=== PATIENT | male | born 1985 | race Caucasian/White ===

== ENCOUNTER 2020-10-03 19:29 | Emergency (ER) | payer MEDICAID, SELFPAY ==
--- NOTE | 2020-10-03 | XR_ITS ---
Examination: XR wrist LT min 3V, XR forearm LT 2V Indication: pain s/p injury Comparison: No prior films available for comparison. Technique: 2 views of the left forearm with 4 coned views of the left wrist Findings: There does appear to be soft tissue swelling about the mid forearm. I do not appreciate any fracture or cortical disruption. On the lateral field of performed in the lateral view of the wrist there is a suggestion of subtle posterior subluxation of the ulnar head in relation to the carpal bones. This however may be projectional in nature and should be clinically correlated for focal tenderness in this location. Carpal bones are otherwise in normal anatomic alignment. XR/XR forearm LT 2V Impression: Soft tissue swelling about the mid forearm. On the lateral view of the forearm and the lateral view of the wrist there appears to be posterior subluxation of the distal ulna in relation to the carpal bones. This appearance however may be projectional in nature to a pronated wrist. Would clinically correlate for point tenderness in this location.
--- NOTE | 2020-10-03 | XR_ITS ---
Examination: XR wrist LT min 3V, XR forearm LT 2V Indication: pain s/p injury Comparison: No prior films available for comparison. Technique: 2 views of the left forearm with 4 coned views of the left wrist Findings: There does appear to be soft tissue swelling about the mid forearm. I do not appreciate any fracture or cortical disruption. On the lateral field of performed in the lateral view of the wrist there is a suggestion of subtle posterior subluxation of the ulnar head in relation to the carpal bones. This however may be projectional in nature and should be clinically correlated for focal tenderness in this location. Carpal bones are otherwise in normal anatomic alignment. XR/XR wrist LT min 3V Impression: Soft tissue swelling about the mid forearm. On the lateral view of the forearm and the lateral view of the wrist there appears to be posterior subluxation of the distal ulna in relation to the carpal bones. This appearance however may be projectional in nature to a pronated wrist. Would clinically correlate for point tenderness in this location.
[2020-10-03 19:34] VITALS: BP 105/67; PULSE 94; RESP 16; TEMP 36.8; O2SAT 97; BMI 21.2
--- NOTE | 2020-10-03 20:09 | ED.EXTPRO ---
HPI - Extremity Problem General Chief complaint: Extremity Injury, Upper Stated complaint: Wrist Pain Time Seen by Provider: 10/03/20 19:54 Source: patient Mode of arrival: ambulatory Limitations: no limitations History of Present Illness HPI Narrative: Patient presents to ED for left wrist pain for the past 4 days. Patient states at work he hit his left wrist on a machine 4 days ago and since then has been swollen and painful. Patient denies any redness, fever, chills, chest pain, or shortness of breath. Related Data Previous Rx's Medication Instructions Recorded cyclobenzaprine 10 mg PO TID PRN #15 tab 10/03/20 naproxen 500 mg PO BID PRN #20 tab 10/03/20 Allergies Allergy/AdvReac Type Severity Reaction Status Date / Time No Known Allergies Allergy Verified 10/03/20 19:34 [No Known Allergies*] Review of Systems Review of Systems: Yes all other systems are reviewed and are negative Constitutional: Constitutional: Reports as per HPI and Reports no additional constitutional complaints Eyes: Eyes: Reports as per HPI and Reports no additional eye complaints ENT: Reports system reviewed and no additional complaints, except as documented and Reports as per HPI Cardiovascular: Cardiovascular: Reports as per HPI and Reports no additional cardiovascular complaints Respiratory: Respiratory: Reports as per HPI and Reports no additional respiratory complaints Gastrointestinal: Gastrointestinal: Reports as per HPI and Reports no additional gastrointestinal complaints Genitourinary: Genitourinary: Reports no additional male genitourinary complaints and Reports as per HPI Musculoskeletal: Musculoskeletal: Reports no additional musculoskeletal complaints and Reports as per HPI Comments: Left wrist pain Neurologic: Reports system reviewed and no additional complaints, except as documented and Reports as per HPI Psychiatric: Psychiatric: Reports no additional psychiatric complaints and Reports as per HPI PMFSH Past Medical History Medical History (Updated 10/04/20 @ 00:00 by Background Daemon) No known health problems Social History Social History Smoking Status: Current every day smoker Any prior treatment program specific to substance use: No Advance Directives: No Advance Directives Information Provided: No Physical Exam Vital Signs: Vital Signs: Last Vital Signs Temp 98.2 F 10/03/20 19:34 Pulse 94 10/03/20 19:34 Resp 16 10/03/20 19:34 BP 105/67 10/03/20 19:34 Pulse Ox 97 10/03/20 19:34 Body Mass Index 21.2 Const: General: cooperative, healthy appearing, comfortable, no acute distress, well developed, alert, awake and Physically active Orientation/consciousness: patient oriented x3 HENMT: Head: Yes normal to inspection and Yes No palpable skull fracture present Eyes: General: appearance normal, both eyes and all related structures Neck: Neck: Yes normal visual inspection, Yes full ROM, Yes no lymphadenopathy, Yes no meningeal signs, Yes trachea midline, Yes supple, No anterior neck swelling and No tender Chest: Chest palpation & inspection: normal inspection of the chest and normal palpation of entire chest wall Resp: Effort & Inspection: normal respiratory effort and able to speak in complete sentences Auscultation: clear to auscultation bilaterally Cardio: Jugular venous distension: no JVD Heart sounds: S1 normal heart sound present and S2 normal heart sound present GI: Inspection: Yes normal to inspection Palpation (GI): Soft to palpation, not firm, nontender and no guarding : General: No CVA tenderness and Yes no CVA tenderness Back/Spine/Pelvis: Back: no CVA tenderness, No CVA tenderness and No back tenderness Skin: General skin exam: no rashes or lesions noted and elasticity normal Neuro: General: patient oriented x3, gait normal, no meningeal signs and CN's II-XI intact bilaterally Cranial nerves: Yes CN's II-XII intact bilaterally Extrem: Other: Left wrist/forearm positive for slight swelling on radial aspect. Positive for pinpoint tenderness on distal radial aspect/dorsal aspect of left upper extremity. Negative for any ulnar bone tenderness on palpation. Negative for deformity. Radial pulse/brachial pulse is intact. Negative for any erythema or warmt warmth. Capillary refill on all fingers are intact. Psych: Appearance: grossly normal, well kempt and not disheveled Course Course Course Narrative: Patient will be sent for left upper extremity imaging. Reevaluation(s) Reevaluation #1: X-ray negative for any fractures. X-ray reading shows possible subtle posterior subluxation of distal ulna bone, but radiologist states this may be due to projection with positioning of patient's hand. Radiologist states clinically correlate to see if there is ulnar pinpoint tenderness. Patient was re-evaluated and he does not have any distal or proximal ulna pinpoint tenderness on palpation. This makes distal proximal ulna subluxation unlikely. Patient points to only radial bone for pain. Patient given Motrin. Patient will be placed in a wrist splint and follow up with [facility] and possible orthopedic referral. Case discuussed with Dr. Costa and she agrees with plan . Time: 20:57 MDM - Extremity (Nontraumatic) MDM Narrative Medical decision making narrative: Wrist contusion/Sprain Discharge Plan Discharge Clinical Impression: Contusion, Sprain and strain of wrist Patient Disposition: Home, Self-Care Instructions: Contusion in Adults (ED), Wrist Sprain (ED) Additional Instructions: Return to the ED for worsening pain, swelling, redness, blue discoloration of fingers, chest pain, shortness of breath, or any other concerning symptoms. Prescriptions: New naproxen 500 mg tablet 500 mg PO BID PRN (Reason: pain) Qty: 20 RF: 0 cyclobenzaprine 10 mg tablet 10 mg PO TID PRN (Reason: muscle spasm) Qty: 15 RF: 0 Referrals: [facility] [Provider Group] - 2 days (Wrist trauma at work. Diagnosis is contusion vs sprain. [facility]) Finn Saenz MD [Physician] - 2 days (Wrist sprain. X-ray shows possible posterior subluxation of the distal ulna which is doubtful even by Radiologist. Physical exam does not indicate posterior subluxation of the distal ulna. Negative for any pinpoint tenderness of distal ulna bone. ) Stand Alone Forms: Work/School Release Interventions: ED Discharge Assessment Last Done: 10/03/20 21:54 Discharge Date/Time: 10/03/20 21:57 Print Language: Citizen Of [place]
[2020-10-03] MEDS: Ibuprofen 800 MG TABLET PO (21:05)
--- NOTE | 2020-10-03 21:06 | PC.NURSE ---
COCK UP SPLINT APPLIED TO L HAND.
== END 2020-10-03 21:57 | disposition home or self-care (01) ==
PROVIDERS: Emergency Provider Emergency Medicine
DX: S60.212A Contusion of left wrist, initial encounter (principal); S63.502A Unspecified sprain of left wrist, initial encounter; S66.912A Strain of unspecified muscle, fascia and tendon at wrist and hand level, left hand, initial encounter; W22.8XXA Striking against or struck by other objects, initial encounter; Y93.9 Activity, unspecified; Y92.9 Unspecified place or not applicable; Y99.0 Civilian activity done for income or pay
CPT/HCPCS: 29125; 73090; 73110; 99284